=== PATIENT | female | born 1990 | race African-American/Black ===

== ENCOUNTER 2022-04-11 09:17 | Emergency (ER) | payer OTHER ==
[2022-04-11 09:29] VITALS: BP 112/76; PULSE 75; TEMP 98.9; BMI 25.9
[2022-04-11] MEDS ORDERED: IBUPROFEN 600 MG TABLET (FP) PO ONE ×2 (10:23→10:40)
[2022-04-11 11:11] LABS: BASO % 0.6 % (0-2.0); EOS % 0.4 % (0-4.5); HEMATOCRIT 38.4 % (32.4-45.2); HEMOGLOBIN 12.5 GM/dL (10.7-15.3); LYMPH % 34.7 % (8-40); MCH 27.2 pg (25.7-33.7); MCHC 32.6 g/dl (32.0-36.0); MEAN CELL VOLUME 83.4 fl (80-96); MEAN PLT VOLUME 7.8 fl (7.5-11.1); NEUT % 45.3 % (42.8-82.8); PLATELET COUNT 68 10^3/uL (134-434); RDW 13.6 % (11.6-15.6); WHITE BLOOD COUNT 3.1 K/mm3 (4.0-10.0)
[2022-04-11 11:35] LABS: ALBUMIN 3.2 g/dl (3.4-5.0); BLOOD UREA NITROGEN 8.7 mg/dL (7-18); CALCIUM 8.6 mg/dL (8.5-10.1)
[2022-04-11 11:39] LABS: CREATININE 0.9 mg/dL (0.55-1.3)
[2022-04-11 11:41] LABS: BILIRUBIN,TOTAL 0.8 mg/dL (0.2-1)
[2022-04-11 11:50] LABS: ANISOCYTOSIS 0; HELMET CELLS 0; HOWELL-JOLLY BODIES 0; MACROCYTOSIS 0; OVALOCYTE 0; ROULEAU 0; SICKELED CELLS 0; TARGET CELLS 0; TEAR DROP CELLS 0; TOXIC GRANULATION 0
== END 2022-04-11 12:12 | disposition home or self-care (01) ==
LOC: JER 09:17
DX: B34.9 Viral infection, unspecified (principal)
CPT/HCPCS: 36415; 80053; 85025; 87798; 99283-25

== ENCOUNTER 2023-01-25 23:46 | Emergency (ER) | payer OTHER ==
[2023-01-25 23:52] VITALS: BP 149/85; PULSE 78; RESP 16; TEMP 97.7; BMI 25.9
== END 2023-01-26 03:29 | disposition home or self-care (01) ==
LOC: JER 23:46
DX: H53.8 Other visual disturbances (principal); R20.2 Paresthesia of skin
CPT/HCPCS: 99283-25

== ENCOUNTER 2025-01-22 12:08 | Inpatient (IN) | payer OTHER ==
[2025-01-22 15:29] VITALS: BMI 29.2
[2025-01-22 16:12] LABS: ABSOLUTE IMMATURE GRANULOCYTES 0.02 x10^3/uL (0.0-0.031); BASOPHILS # 0.04 x10^3/uL (0.01-0.08); EOSINOPHIL % 1.3 % (0.7-5.8); EOSINOPHILS # 0.08 x10^3/uL (0.04-0.36); HEMATOCRIT 36.9 % (34.1-44.9); MCHC 32.5 g/dl (32.2-35.5); MEAN CELL VOLUME 87.9 fl (79.4-94.8); MEAN PLT VOLUME 12.3 fl (9.4-12.3); MONOCYTE # 0.66 x10^3/uL (0.24-0.86); MONOCYTE % 10.4 % (4.7-12.5); PLATELET COUNT 132 x10^3/uL (182-369); RDW 12.9 % (12.1-16.8); Reticulocyte % 2.49 % (0.5-1.7)
[2025-01-22 16:17] LABS: INR 0.96 (0.83-1.09); PROTHROMBIN TIME (PATIENT) 10.5 SEC (9.7-13.0)
[2025-01-22 16:20] LABS: ACTIVATED PTT 27.2 SECONDS (25.2-36.5)
[2025-01-22 16:42] LABS: POTASSIUM 4.1 mmol/L (3.5-5.1)
[2025-01-22 16:44] LABS: BLOOD UREA NITROGEN 13.2 mg/dL (7-18); CALCIUM 9.7 mg/dL (8.5-10.1)
[2025-01-22 16:47] LABS: URIC ACID 5.7 mg/dL (2.6-7.2)
[2025-01-22 16:48] LABS: CREATININE 0.8 mg/dL (0.55-1.3)
[2025-01-22] MEDS: ELECTROLYTE-148 SOLN 1,000 ML IV SCH (21:30)
[2025-01-22] MEDS ORDERED: OXYTOCIN 30 UNITS in 0.9% NS 30 UNIT/500 ML INFUS.BAG IVPB ONE (21:34)
[2025-01-22] MEDS: OXYTOCIN 30 UNITS in 0.9% NS 30 UNIT/500 ML INFUS.BAG IVPB SCH (21:40)
[2025-01-22] MEDS: MISOPROSTOL 25 MCG TABLET (COMPOUNDED BY PHARMACY) PV ONE (21:45)
[2025-01-23 00:11] LABS: HIV INTERPRETATION NEGATIVE (NEGATIVE)
[2025-01-23] MEDS: FENTANYL/BUPIVACAINE/NS/PF - PCEA - 50 ML DISP.SYRIN EP SCH (16:55)
[2025-01-23] MEDS ORDERED: NALOXONE HCL 0.4 MG/ML VIAL IVPUSH PRN (17:04)
[2025-01-23] MEDS ORDERED: FENTANYL/BUPIVACAINE/NS/PF - PCEA - 50 ML DISP.SYRIN EP ONE (20:21)
[2025-01-23] MEDS ORDERED: OXYTOCIN 20 UNITS in 0.9% NS 20 UNIT/1,000 ML INFUS.BAG IV ONE (20:34)
[2025-01-23] MEDS ORDERED: LIDOCAINE HCL 1% PRESERVATIVE FREE - 30ML VIAL ONE (20:34)
[2025-01-23] MEDS: DEXTROSE 5%-LACTATED RINGERS 500 ML IV ONE (20:48)
[2025-01-23] MEDS: PROMETHAZINE HCL 25 MG/1 ML VIAL IVPB ONE (21:09)
[2025-01-23] MEDS: BUTORPHANOL TARTRATE 2 MG/ML VIAL IVPB ONE (21:09)
[2025-01-23 22:48] LABS: CORD HCO3 22.8 mmHg (20-29); CORD PCO2 56.8 mmHg (30-78); CORD pH 7.222 (7.14-7.44)
[2025-01-23] MEDS ORDERED: oxyCODONE HCL 5 MG TABLET PO PRN (22:49)
[2025-01-23] MEDS ORDERED: BENZOCAINE 28 GM HEMORRHOIDAL OINTMENT TP PRN (22:49)
[2025-01-23] MEDS ORDERED: BENZOCAINE 20% 57 GM BOTTLE TP PRN (22:49)
[2025-01-23] MEDS ORDERED: BISACODYL 10 MG SUPP.RECT RC PRN (22:49)
[2025-01-23] MEDS ORDERED: ACETAMINOPHEN 325 MG TABLET (FP) PO PRN (22:49)
[2025-01-23] MEDS ORDERED: WITCH HAZEL 50% (TUCKS) 40 PAD/JAR PAD TP PRN (22:49)
[2025-01-23] MEDS ORDERED: METHYLERGONOVINE MALEATE 0.2 MG/1 ML AMP IM PRN (22:49)
[2025-01-24] MEDS: IBUPROFEN 600 MG TABLET (FP) PO PRN (01:20)
[2025-01-24 01:31] VITALS: RESP 18
[2025-01-24 08:02] LABS: BASOPHILS # 0.04 x10^3/uL (0.01-0.08); EOSINOPHIL % 0.2 % (0.7-5.8); EOSINOPHILS # 0.03 x10^3/uL (0.04-0.36); HEMATOCRIT 31.5 % (34.1-44.9); HEMOGLOBIN 10.3 g/dL (11.2-15.7); MCHC 32.7 g/dl (32.2-35.5); MEAN PLT VOLUME 11.3 fl (9.4-12.3); MONOCYTE # 1.38 x10^3/uL (0.24-0.86); MONOCYTE % 8.1 % (4.7-12.5); PLATELET COUNT 109 x10^3/uL (182-369); RDW 12.8 % (12.1-16.8)
[2025-01-24] MEDS: OXYTOCIN 20 UNITS in 0.9% NS 20 UNIT/1,000 ML INFUS.BAG IV SCH (08:47)
[2025-01-24] MEDS: FERROUS SO4 325 MG TABLET (FP) PO SCH (08:47)
[2025-01-24] MEDS: PRENATAL VITAMINS W/ FOLIC ACID TABLET (FP) PO SCH (09:48)
[2025-01-24] MEDS ORDERED: SENNOSIDES/DOCUSATE COMBO (SENNA PLUS) TABLET (UD) PO PRN (22:00)
[2025-01-25 09:30] VITALS: BP 118/74; PULSE 79; TEMP 97.4
[2025-01-25 10:35] LABS: POC NITRAZINE POS
== END 2025-01-25 14:13 | disposition home or self-care (01) | DRG 560 ==
LOC: JDEL 12:08 → JLDR 13:15 → J3W 01-24 01:08
PROVIDERS: ADMIT Obstetrics & Gynecology; ATTEND Obstetrics & Gynecology
PROC: 10E0XZZ Delivery of Products of Conception, External Approach (ICD-10-PCS; principal; 2025-01-23)
PROC: 0HQ9XZZ Repair Perineum Skin, External Approach (ICD-10-PCS; 2025-01-23)
PROC: 0W8NXZZ Division of Female Perineum, External Approach (ICD-10-PCS; 2025-01-23)
DX: O70.0 First degree perineal laceration during delivery (principal); Z3A.37 37 weeks gestation of pregnancy; Z37.0 Single live birth
CPT/HCPCS: 36415; 36600; 59025; 59409; 80048; 82570; 82803; 82977; 83010; 83986-QW; 84156; 84450; 84460; 84550; 85025; 85610; 85730; 86780; 86850; 86900; 86901; 87389; 88307-TC